=== PATIENT | female | born 1960 | race Caucasian/White ===

== ENCOUNTER 2017-04-27 17:41 | Emergency (ER) | payer MEDICARE ==
[2017-04-27 19:12] VITALS: BMI 29.6
--- NOTE | 2017-04-27 19:18 | ED PDOC ---
Arrival/HPI - General Time Seen by Provider: 04/27/17 17:49 Historian: Patient - History of Present Illness Narrative History of Present Illness (Text): 04/27/17 17:51 A 57 year old female, whose past medical history includes bronchitis, presents to the emergency department complaining of left arm pain beginning 25 minutes ago. Patient reports pain began while at home, starting from shoulder and radiating down to wrist. Pain does not reach left hand. Patient describes pain as though arm is melisa into side and was unable to move arm anymore. Pain later subsided upon arrival to ER. No PMD Past Medical History - Provider Review Nursing Documentation Reviewed: Yes - Infectious Disease Hx of Infectious Diseases: None - Tetanus Immunization Tetanus Immunization: Unknown - Pulmonary Hx Bronchitis: Yes - Musculoskeletal/Rheumatological Hx Arthritis: Yes Hx Back Pain: Yes Hx Herniated Disk: Yes - Psychiatric Hx Depression: Yes Hx Substance Use: No - Surgical History Hx Orthopedic Surgery: Yes (back bilat 4 screws, right knee x3) Other/Comment: right breast biopsy - Anesthesia Hx Anesthesia: Yes Hx Anesthesia Reactions: No Hx Malignant Hyperthermia: No - Suicidal Assessment Feels Threatened In Home Enviroment: No Family/Social History - Physician Review Nursing Documentation Reviewed: Yes Family/Social History: No Known Family HX Smoking Status: Former Smoker Hx Alcohol Use: No Hx Substance Use: No Hx Substance Use Treatment: No Allergies/Home Meds Allergies/Adverse Reactions: Allergies codeine Allergy (Verified 04/27/17 19:26) ITCHING Home Medications: Home Meds Medication Instructions Recorded Confirmed Naproxen [Naprosyn] 500 mg PO QID PRN 11/04/14 04/27/17 Review of Systems - Physician Review All systems were reviewed & negative as marked: Yes - Review of Systems Constitutional: absent: Other (no recent trauma) Musculoskeletal: Other (left arm pain radiating from shoulder to wrist; does not extend to hand whatsoever) Physical Exam Vital Signs Pulse Resp BP Pulse Ox 04/27/17 19:56 70 18 122/62 97 - Systems Exam Pupils: Present: PERRL Extroacular Muscles: Present: EOMI Conjunctiva: Present: Normal Mouth: Present: Moist Mucous Membranes Neck: Present: Normal Range of Motion Respiratory/Chest: Present: Clear to Auscultation, Good Air Exchange. No: Respiratory Distress, Accessory Muscle Use Cardiovascular: Present: Regular Rate and Rhythm, Normal S1, S2. No: Murmurs Abdomen: Present: Normal Bowel Sounds. No: Tenderness, Distention, Peritoneal Signs Back: Present: Normal Inspection Upper Extremity: Present: Normal Inspection, Other (some palpation to left arm) . No: Cyanosis, Edema Lower Extremity: Present: Normal Inspection. No: Edema Neurological: Present: GCS=15, CN II-XII Intact, Speech Normal Skin: Present: Warm, Dry, Normal Color. No: Rashes Psychiatric: Present: Alert, Oriented x 3, Normal Insight, Normal Concentration Medical Decision Making ED Course and Treatment: 04/27/17 17:55 Impression: 57 year old female with left arm pain. Plan: -- Troponin -- Reassess and disposition Progress Notes: - Lab Interpretations Lab Results: Lab Results 04/27/17 18:20: Troponin I < 0.01 - Scribe Statement The provider has reviewed the documentation as recorded by the Jones Faye Provider Scribe Attestation: All medical record entries made by the Scribe were at my direction and personally dictated by me. I have reviewed the chart and agree that the record accurately reflects my personal performance of the history, physical exam, medical decision making, and the department course for this patient. I have also personally directed, reviewed, and agree with the discharge instructions and disposition. Disposition/Present on Arrival - Present on Arrival Any Indicators Present on Arrival: No History of DVT/PE: No History of Uncontrolled Diabetes: No Urinary Catheter: No History Surgical Site Infection Following: Orthopedic Procedures - Disposition Have Diagnosis and Disposition been Completed?: Yes Diagnosis: Muscle spasm, Cough Disposition: HOME/ ROUTINE Disposition Time: 10:30 Patient Problems: Current Active Problems Problem Status Onset Cough Acute Muscle spasm Acute Condition: IMPROVED Prescriptions: Promethazine DM [Phenergan DM Syrup] 10 ml PO TID PRN #120 ml PRN Reason: Cough And Congestion Referrals: [facility] Sabas Brown, [Primary Care Provider] - Follow up with primary
[2017-04-27 20:31] VITALS: BP 124/72; PULSE 72; RESP 16; O2SAT 98
--- NOTE | 2017-04-28 20:50 | CARD ---
APPROVED REPORT EKG Measurement Heart [id number] <Conclusion> Poor data quality, interpretation may be adversely affected Normal sinus rhythm Normal ECG
== END 2017-04-27 20:36 | disposition home or self-care (01) ==
LOC: ED 17:41
DX: M62.838 Other muscle spasm (principal); R05 Cough